=== PATIENT | female | born 1945 | race Asian ===

== ENCOUNTER 2019-08-15 08:35 | Day surgery (SDC) | payer OTHER, BC ==
[2019-07-12 14:21] VITALS: BMI 29.7
[2019-08-15 10:16] VITALS: TEMP 97.9
[2019-08-15 11:24] VITALS: BP 146/60; PULSE 20
--- NOTE | 2019-08-16 17:51 | PATH ---
Surgical Pathology Report Patient Name: ARNULFO FAY [facility]. Rec. #: [id number] /Age/Gender: 1945 (Age: 73) / F Account: [id number] Location: [facility]-ENDOSCOPY Taken: 08/15/2019 Received: 08/15/2019 Reported: 08/16/2019 Physicians: Anival Rojas M.D. Specimen(s) Received A: MID TRANSVERSE COLON POLYP B: RIGHT COLON POLYP Clinical History Screening Postoperative diagnosis: Polyps Final Diagnosis A. MID TRANSVERSE COLON POLYP, POLYPECTOMY: POLYPOID COLONIC MUCOSA WITH PROMINENT LYMPHOID AGGREGATE. B. COLON, RIGHT, POLYP, POLYPECTOMY: TUBULAR ADENOMA(S). Electronically Signed Sakina Wells M.D. Gross Description A. Received in formalin, labeled "mid transverse colon polyp" is a carlson, irregular portion of soft tissue measuring 0.3 cm. in greatest dimension. The specimen is submitted in toto in one cassette. B. Received in formalin, labeled "right colon polyp" are 6 carlson, irregular portions of soft tissue ranging in size from 0.1-0.4 cm. in greatest dimension. The specimens are submitted in toto in one cassette. MLSZ/08/15/2019 sanjim/08/15/2019
== END 2019-08-15 11:35 | disposition home or self-care (01) ==
LOC: JASU-ENDO 08:35
PROVIDERS: ATTEND Internal Medicine Gastroenterology
PROC: 0DBL8ZX Excision of Transverse Colon, Via Natural or Artificial Opening Endoscopic, Diagnostic (ICD-10-PCS; 2019-08-15)
PROC: 0DBK8ZX Excision of Ascending Colon, Via Natural or Artificial Opening Endoscopic, Diagnostic (ICD-10-PCS; principal; 2019-08-15 09:15)
DX: Z12.11 Encounter for screening for malignant neoplasm of colon (principal); D12.2 Benign neoplasm of ascending colon; D12.3 Benign neoplasm of transverse colon
CPT/HCPCS: 88305-TC